=== PATIENT | female | born 1970 | race Caucasian/White ===

== ENCOUNTER → 2019-10-31 13:43 | Outpatient (BNVA) | payer MEDICARE, MEDICAID, SELFPAY | PROVIDERS: Family Provider Family Medicine; PCP Family Medicine; Referring Provider Specialist; Visit Provider Anesthesiology Pain Medicine | DX: G89.29 Other chronic pain (principal); M54.5 Low back pain; M54.12 Radiculopathy, cervical region; F17.210 Nicotine dependence, cigarettes, uncomplicated | CPT/HCPCS: 99205 ==

== ENCOUNTER → 2019-11-05 13:39 | Outpatient (BNVA) | payer MEDICARE, MEDICAID, SELFPAY | PROVIDERS: Family Provider Family Medicine; PCP Family Medicine; Visit Provider Anesthesiology Pain Medicine | DX: M54.12 Radiculopathy, cervical region (principal); F17.210 Nicotine dependence, cigarettes, uncomplicated | CPT/HCPCS: 62321; J1100; J2001 ==

== ENCOUNTER 2019-11-27 10:36 | Outpatient (RCR) | payer MEDICARE, MEDICAID, SELFPAY | END 2019-12-19 23:59 | disposition home or self-care (01) | LOC: SPT 10:36 | PROVIDERS: Family Provider Family Medicine; PCP Family Medicine; Referring Provider Specialist; Visit Provider Specialist | DX: M96.1 Postlaminectomy syndrome, not elsewhere classified (principal) | CPT/HCPCS: 97110; 97161; G0283 ==

== ENCOUNTER 2019-12-20 06:00 | Outpatient (RCR) | payer MEDICARE, MEDICAID, SELFPAY | END 2020-01-19 23:59 | disposition home or self-care (01) | LOC: SPT 06:00 | PROVIDERS: PCP Family Medicine; Referring Provider Specialist; Visit Provider Specialist | DX: M50.020 Cervical disc disorder with myelopathy, mid-cervical region, unspecified level (principal) | CPT/HCPCS: 97110 ==

== ENCOUNTER → 2020-01-03 10:50 | Outpatient (BNVA) | payer MEDICARE, MEDICAID, SELFPAY | PROVIDERS: PCP Family Medicine; Visit Provider Anesthesiology Pain Medicine | DX: G89.29 Other chronic pain (principal); M54.41 Lumbago with sciatica, right side; M54.9 Dorsalgia, unspecified; M54.12 Radiculopathy, cervical region; F17.210 Nicotine dependence, cigarettes, uncomplicated; Z79.891 Long term (current) use of opiate analgesic | CPT/HCPCS: 99214 ==

== ENCOUNTER 2020-03-29 18:22 | Emergency (ER) | payer MEDICARE, MEDICAID, SELFPAY ==
[2020-03-29 18:42] VITALS: BP 123/81; PULSE 96; RESP 14; TEMP 36.6; O2SAT 97; BMI 31.1
--- NOTE | 2020-03-29 19:55 | XRR_ITS ---
PROCEDURE INFORMATION: Exam: XR Abdomen, 1 View Exam date and time: 03/29/2020 8:29 PM Age: 49 years old Clinical indication: Constipation; Prior surgery; Surgery type: Hernia, hyst; Additional info: Abd distention TECHNIQUE: Imaging protocol: XR of the abdomen. Views: Frontal supine view of the abdomen. 1 View. COMPARISON: CT Chest/Abdomen/Pelvis w IV* 03/28/2019 8:57 PM FINDINGS: Gastrointestinal tract: Normal. No bowel dilation. Bones/joints: Unremarkable. XR/XR KUB portable [id number] IMPRESSION: No acute findings.
--- NOTE | 2020-03-29 19:59 | W.ED.GENADLT ---
HPI - General Adult General: Chief complaint: Abdominal Pain Stated complaint: upper abd pain Time Seen by Provider: 03/29/20 19:54 History of Present Illness: HPI narrative: Patient complains about bowels not working well and her abdomen is getting distended is pushing up on her diaphragm she not breathing well because of that MD complaint: Constipation Onset (ago): month(s) Location: abdomen Associated symptoms: Deny chest pain, dyspnea, headache(s), nausea, rash or vomiting Review of Systems Const: Denies: fever(s), chills or body aches Eyes: Denies: change in vision or blurry vision ENMT: Denies: throat pain or nasal congestion Card: Denies: chest pain or dyspnea on exertion Resp: Denies: dyspnea, productive cough or non-productive cough GI: Reports: constipation and bloating; Denies: abdominal pain, nausea or vomiting Musc: Denies: extremity pain Skin/Breast: Denies: rash Neuro: Denies: headache(s) Psych: Denies: anxiety or depression Jan/Lymph: Denies: easy bruising PFSH ED PFSH: Family History Mother Hyperlipidemia History of heart attack Hypertension Lung disease COPD Family/Other Cancer BREAST CANCER Brother Myocardial infarct Drug abuse Social History Smoking and tobacco status: current every day smoker cigarettes Packs smoked per day: 0.5 Alcohol intake: never Caregiver/support person: Yes Lives independently: Yes History of recent travel: No Physical Exam Const: COMMON NORMALS: no acute distress, average body habitus and patient oriented x3 HENMT: COMMON NORMALS: normocephalic HEAD & SCALP: normal to inspection and normocephalic FACE & SINUS: normal facial exam Eye: COMMON NORMALS: conjunctivae normal GENERAL EYE: appearance normal, both eyes and all related structures CONJUNCTIVA: Yes conjunctivae normal Neck/C-Spine: COMMON NORMALS: no JVD Chest: COMMONS NORMALS: normal inspection of the chest Resp: COMMON NORMALS: normal respiratory effort and clear to auscultation bilaterally AUSCULTATION: clear to auscultation bilaterally Cardio: COMMON NORMALS: no JVD, regular rate and regular rhythm RATE: regular rate RHYTHM: regular rhythm GI: COMMON NORMALS: Soft to palpation INSPECTION: Yes abdominal distension AUSCULTATION: Yes Hyperactive bowel sounds present PALPATION: Yes Soft to palpation PERCUSSION: dullness to percussion Extremity: COMMON NORMALS: normal to inspection and full ROM Neuro: COMMON NORMALS: patient oriented x3 Course Vital Signs: Vital signs: Vital Signs Temperature 97.8 F 03/29/20 18:42 Pulse Rate 96 03/29/20 18:42 Respiratory Rate 14 03/29/20 18:42 Blood Pressure 123/81 03/29/20 18:42 Pulse Oximetry 97 03/29/20 18:42 Discharge Plan Discharge Condition: Good Prescriptions: No Action Unisom (doxylamine) 25 mg tablet 25 mg PO .HS PRNRF: 0 clonazepam 1 mg tablet 1 mg PO BID PRNRF: 0 carisoprodol [Soma] 350 mg tablet 350 mg PO TID PRNRF: 0 fluticasone propionate 50 mcg/actuation spray,suspension 2 spray INTRANASAL DAILY RF: 0 sertraline [Zoloft] 100 mg tablet 100 mg PO DAILY RF: 0 Amitiza 24 mcg capsule 24 mcg PO BID RF: 0 levocetirizine 5 mg tablet 5 mg PO DAILY RF: 0 albuterol sulfate 90 mcg/actuation aerosol powdr breath activated 2 inh INHALATION Q6H PRNRF: 0 Breo Ellipta 200-25 mcg/dose blister with device 1 inh INHALATION DAILY RF: 0 omega-3 fatty acids [Fish Oil Concentrate] 1,000 mg capsule 1,000 mg PO DAILY RF: 0 simethicone [Gas Relief (simethicone)] 80 mg tablet,chewable 80 mg PO DAILY PRNRF: 0 Sleep Aid (doxylamine) 25 mg tablet 25 mg PO .1 HS PRNRF: 0 sertraline 50 mg tablet 50 mg PO DAILY RF: 0 ascorbate calcium (vitamin C) 500 mg tablet 500 mg PO DAILY RF: 0 omega-3 fatty acids [Fish Oil Concentrate] 1,000 mg capsule 1,000 mg PO DAILY RF: 0 Metamucil 3.4 gram/5.4 gram powder 1 tbsp PO DAILY RF: 0 gabapentin 600 mg tablet 600 mg PO TID Qty: 90 RF: 0 tramadol 50 mg tablet 50 mg PO TID PRN (Reason: pain) Qty: 60 RF: 0 Coding Level of Care Code ED Administrative Representative for Chg Fwd
[2020-03-29 20:08] LABS: Basophils # 0.1 10^3/uL (0.0-0.1); Basophils % 0.6 %; Eosinophils # 0.5 10^3/uL (0.0-0.8); Eosinophils % 4.9 %; Hematocrit 43.1 % (37.0-47.0); Hemoglobin 14.8 g/dL (11.5-15.3); Lymphocytes # 4.3 10^3/uL (0.8-4.8); Lymphocytes % 39.4 %; Mean Corpuscular HGB Conc 34.3 g/dL (30.0-36.0); Mean Corpuscular Hemoglobin 33.2 pg (28.0-34.0); Mean Corpuscular Volume 96.6 fL (81-99); Mean Platelet Volume 9.2 fL (7.4-10.4); Monocytes # 0.7 10^3/uL (0.2-0.9); Monocytes % 6.1 %; Neutrophils # 5.31 10^3/uL (1.8-7.7); Neutrophils % 48.7 %; Nucleated Red Blood Cells % 0 %; Platelet Count 327 10^3/cmm (130-400); Red Blood Count 4.46 10^6/uL (4.1-5.3); Red Cell Distribution Width 11.8 % (12.1-15.1); White Blood Count 10.9 10^3/uL (4.0-10.0)
[2020-03-29 20:16] LABS: Add Urine Microscopic? NO
[2020-03-29 20:20] LABS: Bilirubin Urine Neg (NEGATIVE); Blood Urine Neg (Negative); Glucose Urine UA Norm (Normal); Ketones Urine Negative (Negative); Leukocyte Esterase Urine Negative (Negative); Nitrate Urine Negative (Negative); Protein Urine Neg (Negative); Urine Appearance Clear (CLEAR); Urine Color Yellow (Yellow); Urobilinogen Urine Norm (Negative); pH Urine 5 (5-7)
[2020-03-29 20:29] LABS: Alanine Aminotransferase 34 U/L (0-33); Albumin Level 4.6 g/dL (3.5-5.2); Alkaline Phosphatase 89 IU/L (35-105); Aspartate Amino Transferase 22 U/L (0-32); Blood Urea Nitrogen 13 mg/dL (6-20); Calcium 10.9 mg/dL (8.5-10.5); Carbon Dioxide 24 mmol/L (22-29); Chloride 104 mmol/L (98-107); Globulin 3.2 g/dL (1.3-4.6); Glomerular Filtration Rate 67.1 mL/min (90-130); Glucose 104 mg/dL (65-115); Lipase 31 U/L (13-60); Osmolality Calculated 280 mOsm/kg (285-295); Sodium 137 mmol/L (136-145); Total Bilirubin 0.3 mg/dL (0.15-1.2); Total Protein 7.8 g/dL (6.6-8.7)
[2020-03-29 20:53] VITALS: BP 118/86; PULSE 78; RESP 18; O2SAT 99
[2020-03-29] MEDS: lactulose oral liq 20 gm/30 mL UDC PO (20:53)
== END 2020-03-29 20:58 | disposition home or self-care (01) ==
PROVIDERS: Emergency Medicine; Emergency Provider Nurse Practitioner Family; PCP Family Medicine
DX: R10.9 Unspecified abdominal pain (principal); F17.210 Nicotine dependence, cigarettes, uncomplicated
CPT/HCPCS: 12345; 36415; 74018; 80053; 81003; 83690; 85025; 99282; 99283

== ENCOUNTER 2020-11-02 14:12 | Outpatient (CLI) | payer MEDICARE, MEDICAID, SELFPAY ==
--- NOTE | 2020-11-02 14:18 | MM_ITS ---
WS: [id number] BILATERAL DIGITAL SCREENING MAMMOGRAPHY WITH CAD CLINICAL INFORMATION: SCREENING HISTORY: Screening mammogram. No current complaints. COMPARISON: March 23, 2010 TECHNIQUE: Bilateral CC and MLO views. FINDINGS: The breasts are composed of heterogeneous fibroglandular density tissue, which can limit the detectio n of small underlying mass lesions. A few incidental punctate calcifications. 8 mm focal asymmetric d ensity upper outer RIGHT breast is new from 2010. Recommend spot compression views and ultrasound for further evaluation. Left breast is unremarkable and unchanged. MM/[place] [id number] IMPRESSION: BI-RADS: 0-Incomplete: Need additional imaging evaluation FOLLOW UP: Need Additional Imaging RECOMMEND RIGHT BREAST DIAGNOSTIC MAMMOGRAPHY AND ULTRASOUND.
== END 2020-11-02 14:13 | disposition home or self-care (01) ==
LOC: RADSHAW 14:15
PROVIDERS: PCP Family Medicine; Visit Provider Family Medicine
DX: Z12.31 Encounter for screening mammogram for malignant neoplasm of breast (principal); R92.1 Mammographic calcification found on diagnostic imaging of breast
CPT/HCPCS: 77067

== ENCOUNTER 2020-12-16 13:17 | Outpatient (CLI) | payer MEDICARE, MEDICAID, SELFPAY ==
--- NOTE | 2020-12-16 13:22 | US_ITS ---
WS: [id number] RIGHT DIGITAL MAMMOGRAPHY WITH CAD CLINICAL INFORMATION: BREAST ASYMMETRY COMPARISON: November 02, 2020 TECHNIQUE: 3 views of the right breast were obtained. FINDINGS: The right breast is composed of heterogeneous fibroglandular density tissue, which can limit the dete ction of small underlying mass lesions. 8 mm asymmetric density upper outer right breast is stable. Ultrasound is pending. ULTRASOUND BREAST RIGHT TECHNIQUE: Ultrasound right breast focused area of concern. CLINICAL INFORMATION: BREAST ASYMMETRY COMPARISON: None. FINDINGS: Ultrasound right breast 10:00 position 5 cm from the nipple and 10:00 1 cm from the nipple. Incidenta l simple cyst 10:00 position 1 cm from the nipple measuring 1.1 x 0.3 x 1.5 CM. This has a benign jayme earance. Additional hypoechoic lesion likely represents a complex cyst or dilated duct and is probably benign but technically indeterminant with internal echoes. This is 5 cm from the nipple at the 10:00 positio n measuring 7.7 x 3.6 x 2.8 mm. Recommend 6 month follow-up to confirm stability. US/US breast RT limited* [id number] IMPRESSION: BI-RADS: 3-Probably Benign FOLLOW UP: 6 Month Follow-up RECOMMEND 6 MONTH FOLLOW-UP RIGHT DIAGNOSTIC MAMMOGRAPHY AND ULTRASOUND WITH AT TENTION TO THE HYPOECHOIC LESION AT THE 10:00 POSITION 5 CM FROM THE NIPPLE
== END 2020-12-16 13:18 | disposition home or self-care (01) ==
LOC: RADSHAW 13:20
PROVIDERS: PCP Family Medicine; Visit Provider Family Medicine
DX: N64.89 Other specified disorders of breast (principal)
CPT/HCPCS: 76642; 77065

== ENCOUNTER 2022-03-28 17:06 | Emergency (ER) | payer MEDICARE, MEDICAID, SELFPAY ==
--- NOTE | 2022-03-28 17:34 | XRR_ITS ---
PROCEDURE INFORMATION: Exam: XR Right Hand Exam date and time: 03/28/2022 6:32 PM Age: 51 years old Clinical indication: Injury or trauma; Other: RT hand shut in car door; Fracture, traumatic injury; Closed fracture; Carpals and finger; Right; Little finger; Additional info: Hand pain TECHNIQUE: Imaging protocol: Radiologic exam of the Right hand. Views: 3 or more views. COMPARISON: No relevant prior studies available. FINDINGS: Bones/joints: Acute minimally comminuted fracture of the right 5th metacarpal at junction of head and shaft, with the head angulated slightly toward the thumb. No significant displacement of fragments. On the lateral view there is a punctate bone fragment seen along the anterior base of the middle phalanx of the 5th finger at the proximal interphalangeal joint potentially representing a small avulsion fracture. Soft tissues: Soft tissue swelling over the fracture site. XR/XR hand RT min 3V* [id number] IMPRESSION: 1. Acute minimally comminuted fracture of the right 5th metacarpal at junction of head and shaft, with slight angulation but no significant displacement. 2. Punctate bone fragments seen along the anterior base of the middle phalanx of the 5th finger at the proximal interphalangeal joint may represent a small avulsion fracture.
[2022-03-28 17:54] VITALS: BP 125/85; PULSE 84; RESP 18; TEMP 36.9; BMI 28.1
--- NOTE | 2022-03-28 19:08 | ED_ITS ---
HPI - Extremity Injury (Upper) General: Chief Complaint: Extremity Injury, Upper Stated Complaint: Right hand injury Time Seen by Provider: 03/28/22 19:07 Source: patient Mode of arrival: ambulatory Limitations: no limitations History of Present Illness: Patient is a 51-year-old female presents to ED today with complaint of right hand pain over the past week. She states a week ago she accidentally slammed her hand in a car door and has had discomfort since. She has no other injuries or complaints at this time. She denies any numbness, tingling, loss of sensation to her hand or digits. complaint: injury to: right and hand Onset (ago): day(s) Other Extremity Injury: Right: hand Other injuries: none Place: home Severity: moderate Relieving factors: immobilization Exacerbating factors: movement of extremity Context: direct blow and crush Associated symptoms: Reports no associated symptoms Review of Systems Musc: Reports: extremity pain (R hand) and extremity swelling (R hand) Neuro: Denies: numbness in extremities or sensory changes PFS ED PFSH: Family History Mother Hyperlipidemia History of heart attack Hypertension Lung disease COPD Family/Other Cancer BREAST CANCER Brother Myocardial infarct Drug abuse Social History Smoking and tobacco status: current every day smoker cigarettes Packs smoked per day: 0.5 Alcohol intake: never Caregiver/support person: Yes Lives independently: Yes History of recent travel: No Physical Exam Const: COMMON NORMALS: no acute distress, average body habitus, patient oriented x3, no limitations and well nourished Extremity: COMMON NORMALS: capillary refill normal GENERAL: Yes normal exam except as noted RIGHT UPPER EXTREMITY: Yes hand & digits (TTP 5th metacarpal; mild deformity consistent with fx) Right hand and digits: Yes neurovascular exam (normal) Neuro: COMMON NORMALS: patient oriented x3, moves all extremities, no focal motor deficits and no sensory deficits noted Course Vital Signs: Vital signs: Vital Signs Temperature 98.4 F 03/28/22 17:54 Pulse Rate 84 03/28/22 17:54 Respiratory Rate 18 03/28/22 17:54 Blood Pressure 125/85 03/28/22 17:54 Oxygen Delivery Me thod 03/28/22 17:54 MDM - Extremity Injury (Upper) Medical Decision Making Patient has a fracture to the neck of her fifth metacarpal. Angulation seems to be acceptable. Will place in an ulnar gutter splint and have her follow-up with orthopedics. Radiologist did mention to a punctate bone fragment near her fifth PIP joint. Patient tells me she has fractured this finger previously. She is currently not having any pain to the digit itself. Lab Data Radiology Impressions Hand X-Ray 03/28/22 17:34 IMPRESSION: 1. Acute minimally comminuted fracture of the right 5th metacarpal at junction of head and shaft, with slight angulation but no significant displacement. 2. Punctate bone fragments seen along the anterior base of the middle phalanx of the 5th finger at the proximal interphalangeal joint may represent a small avulsion fracture. Discharge Plan Discharge Patient Disposition: Home Clinical Impression: Fracture of fifth metacarpal bone of right hand Qualifiers: Encounter type: initial encounter Fracture type: closed Metacarpal location: neck Fracture alignment: nondisplaced Qualified Code(s): S62.366A - Nondisplaced fracture of neck of fifth metacarpal bone, right hand, initial encounter for closed fracture Condition: Stable Prescriptions: Continued tramadol 50 mg tablet 50 mg PO TID PRN (Reason: pain) Qty: 14 0RF No Action Unisom (doxylamine) 25 mg tablet 25 mg PO .HS PRN clonazepam 1 mg tablet 1 mg PO BID PRN carisoprodol [Soma] 350 mg tablet 350 mg PO TID PRN Label Comments: PT STATES THAT IT IS BID SHE ONLY GETS 60 TABS fluticasone propionate 50 mcg/actuation spray,suspension 2 spray INTRANASAL DAILY sertraline [Zoloft] 100 mg tablet 100 mg PO DAILY Amitiza 24 mcg capsule 24 mcg PO BID levocetirizine 5 mg tablet 5 mg PO DAILY albuterol sulfate 90 mcg/actuation aerosol powdr breath activated 2 inh INHALATION Q6H PRN Breo Ellipta 200-25 mcg/dose blister with device 1 inh INHALATION DAILY omega-3 fatty acids [Fish Oil Concentrate] 1,000 mg capsule 1,000 mg PO DAILY simethicone [Gas Relief (simethicone)] 80 mg tablet,chewable 80 mg PO DAILY PRN Sleep Aid (doxylamine) 25 mg tablet 25 mg PO .1 HS PRN sertraline 50 mg tablet 50 mg PO DAILY ascorbate calcium (vitamin C) 500 mg tablet 500 mg PO DAILY omega-3 fatty acids [Fish Oil Concentrate] 1,000 mg capsule 1,000 mg PO DAILY Metamucil 3.4 gram/5.4 gram powder 1 tbsp PO DAILY Rx Instructions: mix into at least 8 oz of water or juice before administering gabapentin 600 mg tablet 600 mg PO TID Qty: 90 0RF lactulose 10 gram/15 mL solution 10 gm PO DAILY PRN (Reason: laxative effect) Qty: 237 0RF Discharge Orders: Discharge ED (Routine); Ordered 03/28/22 Ordered By: Anna Booker Referrals: Hector Carlton MD [Primary Care Provider] - Activity Restrictions/Additional Instructions: As we discussed case management should contact you shortly to set you up with your follow-up orthopedic appointment. Coding Level of Care Code ED Paper Twister for [address]aren [address]
[2022-03-28] MEDS: TRAMadol 50 mg Tablet 100 MG PO (19:25)
--- NOTE | 2022-03-30 13:56 | DCPLANNER ---
Addendum entered by [employer] 03/31/22 13:45: pharmacist manager received the following message from the ortho clinic regarding follow up appointment; Attempted to call pt. left vm/mailed letter for pt to call back in and schedule with Dr. Longoria Original Note: pharmacist manager had message to schedule a follow up appointment for patient with ortho. pharmacist manager sent patients information to the front office staff at ortho. Patients information will be printed and reviewed. Clinic will call patient with appointment information.
== END 2022-03-28 19:30 | disposition home or self-care (01) ==
PROVIDERS: Emergency Provider Physician Assistant; PCP Family Medicine
DX: S62.366A Nondisplaced fracture of neck of fifth metacarpal bone, right hand, initial encounter for closed fracture (principal); F17.210 Nicotine dependence, cigarettes, uncomplicated; W23.0XXA Caught, crushed, jammed, or pinched between moving objects, initial encounter
CPT/HCPCS: 29125; 73130; 99283

== ENCOUNTER 2022-04-01 06:00 | Outpatient (CLI) | payer MEDICARE, MEDICAID, SELFPAY | END 2022-04-01 23:59 | disposition home or self-care (01) | LOC: SPT 06-01 20:21 | PROVIDERS: PCP Family Medicine; Visit Provider Nurse Practitioner Family | DX: Z46.89 Encounter for fitting and adjustment of other specified devices (principal) | CPT/HCPCS: 97760; L3984 ==

== ENCOUNTER → 2022-04-01 09:37 | Outpatient (BNVA) | payer MEDICARE, MEDICAID, SELFPAY | PROVIDERS: PCP Family Medicine; Visit Provider Nurse Practitioner Family | DX: M54.12 Radiculopathy, cervical region (principal); W22.8XXA Striking against or struck by other objects, initial encounter; S62.306A Unspecified fracture of fifth metacarpal bone, right hand, initial encounter for closed fracture | CPT/HCPCS: 73130; 99214 ==

== ENCOUNTER → 2022-08-10 14:02 | Outpatient (BNVA) | payer MEDICARE, MEDICAID, SELFPAY | PROVIDERS: PCP Family Medicine; Visit Provider Nurse Practitioner Family | DX: S62.606A Fracture of unspecified phalanx of right little finger, initial encounter for closed fracture (principal); X58.XXXA Exposure to other specified factors, initial encounter; R20.0 Anesthesia of skin; R20.2 Paresthesia of skin | CPT/HCPCS: 73130; 99214 ==

== ENCOUNTER → 2023-08-16 13:32 | Outpatient (BNVA) | payer MEDICAID, SELFPAY | PROVIDERS: PCP Family Medicine; Visit Provider Registered Nurse Neonatal Intensive Care | DX: J02.9 Acute pharyngitis, unspecified (principal) | CPT/HCPCS: 87880 ==

== ENCOUNTER 2023-11-06 08:25 | Outpatient (CLI) | payer OTHER, MEDICAID, SELFPAY ==
--- NOTE | 2023-11-06 08:31 | MR_ITS ---
WS: [id number] MRI CERVICAL SPINE NONCONTRAST HISTORY: CERVICAL DISC DISORDER COMPARISON: 11/30/2018 Technique: Multiplanar, multisequence noncontrast imaging of the cervical spine. Mild straightening of the normal cervical lordosis. No acute fractures or marrow edema. Moderate disc space narrowing at C5-6 and C6-7 is mildly progressed since 2019. Signal within the cervical cord is normal. Visualized posterior fossa is unremarkable. Craniocervical junction, C1 and C2 relationship, odontoid process and soft tissues are normal. C2-C3: Normal. C3-C4: Mild osteophytic ridging and a central disc protrusion. New central disc protrusion since the prior study. No stenosis. C4-C5: Very minimal osteophytic ridging. No stenosis. C5-C6: Diffuse annular disc bulging and osteophytic ridging and facet arthritis. Mild annular disc bu lging slightly greatest to the LEFT as on the prior study. Mild central and LEFT foraminal stenosis. No change. C6-C7: Mild disc bulging and osteophytic ridging. Small foraminal osteophytes. No stenosis. C7-T1: LEFT foraminal disc osteophyte causing mild narrowing of the LEFT foramen. New since the prior study. Paraspinal soft tissue are normal. IMPRESSION: 1. No high-grade central or foraminal stenosis. 2. New small disc osteophyte complex LEFT foramen of C7 and T1. Only minimal narrowing of the LEFT f oramen. 3. New shallow central disc protrusion at C3-4. 4. Mild central and LEFT foraminal stenosis at C4-5 with no change. 5. Mild progression of degenerative disc disease at C5-6 and C6-7.
== END 2023-11-06 08:26 | disposition home or self-care (01) ==
LOC: RAD 08:26
PROVIDERS: PCP Family Medicine; Visit Provider Family Medicine
DX: M50.21 Other cervical disc displacement, high cervical region (principal); M50.322 Other cervical disc degeneration at C5-C6 level; M48.02 Spinal stenosis, cervical region; M25.78 Osteophyte, vertebrae
CPT/HCPCS: 72141